=== PATIENT | male | born 1945 | race Caucasian/White ===

== ENCOUNTER 2019-03-11 09:31 | Emergency (ER) | payer MEDICARE, OTHER ==
[~2019-03-11] VITALS: Ht 193 cm; Wt 109.1 kg
[~2019-03-11 09:31] MED LIST: ASPI81TA30 PO; ATOR40TA71 PO; LOSA50TA3 PO
[2019-03-11 09:47] VITALS: BP 166/80
== END 2019-03-11 11:06 | disposition left against medical advice (07) ==
LOC: ER 09:31
DX: T81.9XXA Unspecified complication of procedure, initial encounter (principal); Z53.21 Procedure and treatment not carried out due to patient leaving prior to being seen by health care provider; Y83.8 Other surgical procedures as the cause of abnormal reaction of the patient, or of later complication, without mention of misadventure at the time of the procedure; Y92.89 Other specified places as the place of occurrence of the external cause

== ENCOUNTER 2025-07-11 11:24 | Day surgery (SDC) | payer MEDICARE, OTHER ==
[2025-07-07 14:18] LABS: MEAN PLATELET VOLUME 8.9 FL (7.4-10.4); RED CELL DISTRIBUTION WIDTH 13.6 % (11.5-14.5)
[2025-07-07 14:35] LABS: CREATININE 0.91 MG/DL (0.60-1.10); TOTAL CARBON DIOXIDE 27.3 MMOL/L (24-32); eGFR 81 ML/MIN
[2025-07-07 14:41] LABS: EOSINOPHILS % (MANUAL) 1.0 % (0-6); LYMPHOCYTES % (MANUAL) 58.0 % (21-51); MONOCYTES % (MANUAL) 5.0 % (2-12); NEUTROPHILS % (MANUAL) 28.0 % (42-75); REACTIVE LYMPHOCYTES % 8.0 % (0-0)
[2025-07-07 14:42] LABS: PLATELET ESTIMATE NORMAL
[2025-07-11] VITALS (17 sets, daily range): BP systolic 89–144; BP diastolic 33–84; PULSE 60–74; RESP 12–74; TEMP 98; O2SAT 93–98
[~2025-07-11] VITALS: Ht 193 cm; Wt 105.1 kg
[2025-07-11] MEDS: LIDOcaine 1% 30ml preserv. free vial IJ ONE (11:17)
[~2025-07-11 11:24] MED LIST changes: +LIDOcaine 1% 30ml preserv. free vial ONE; +LOSA-416 PO; -LOSA50TA3 PO
[2025-07-11] MEDS ORDERED: fentaNYL/PF 50MCG/1 ML 2ML syringe ONE ×2 (11:52→12:15)
[2025-07-11] MEDS ORDERED: MIDAZolam 1 MG/ML 5ML VIAL ONE ×2 (11:52→12:15)
[2025-07-11] MEDS: mupirocin 2% nasal ointment 1gm UD NS ONE (11:55)
[2025-07-11] MEDS: ceFAZolin 2gm/dext,iso 50mL 50 ML IV ONE (11:55)
[2025-07-11] MEDS: ringers solution, lacted 1,000 ML IV SCH (11:55)
[2025-07-11] MEDS: metoprolol tartrate 12.5mg (1/2 tablet) PO ONE (11:57)
--- NOTE | 2025-07-11 13:02 | OPERATIVE REPORT ---
Operative Report Operative Report Cardiovascular surgery operative report 11 July 2025 Preoperative diagnosis: Status post biventricular pacemaker implantation with generator HELEN Postop diagnosis: Same Procedure: Biventricular pacemaker generator replacement using Jackson pulse generator model number [id number] serial [id number] Surgeon: Dr. Uyen Bear Anesthesia: Local with 1% lidocaine with conscious sedation using Versed and fentanyl Complications: None EBL: 5 cc Procedure: The patient is taken to the operating room placed in supine position. Following the administration of intravenous sedation and the placement of appropriate lines the anterior chest was prepped and draped sterilely. The skin subcutaneous tissue as well as pectoralis major muscle underlying the scar in the left prepectoral region was infiltrated with 1% lidocaine for approximately 15 cc. The scar was excised and this incision carried down through skin and subcutaneous tissue sharply using electrocautery for hemostasis. The pectoralis major muscles were spread to expose the underlying pocket. The pocket was then opened with the electrocautery. The pulse generator was removed. The leads were then removed from the pulse generator and attached to the new pulse generator. They were tested. The right atrial lead had a P-wave of greater than 5 mV with impedance of 530 Ohms at 5 volts. Its threshold was 0.5 volts. The right ventricular lead had an impedance of 460 Ohms at 5 volts with a threshold of 0.87 volts at five milliseconds. No R-wave was obtainable due to pacer dependence. The left ventricular lead had an impedance of 510 Ohms with a threshold was 0.37 volts at a pulse width of 0.8 milliseconds. These were felt to be excellent. The generator was then replaced within the pocket coiling all excess lead between the generator and the muscle. The pocket was then copiously irrigated with antibiotic solution. The incision was closed by reapproximating the pectoralis major muscle with interrupted 2-0 Vicryl, the subcutaneous tissue with a running 2-0 Vicryl and the skin with a running 4-0 Monocryl subcuticular suture. Steri- Strips were applied to skin and a Bioclusive dressing was placed. The patient was then awakened returned to the recovery room in stable condition, having tolerated the procedure satisfactorily. There were no complications. Sponge, needle and instrument counts were correct x2 at the end of the case. UYEN BEAR III, MD Jul 11, 2025 13:02
== END 2025-07-11 14:14 | disposition home or self-care (01) ==
LOC: PAS 11:24
PROVIDERS: ATTEND Thoracic Surgery (Cardiothoracic Vascular Surgery)
DX: Z45.010 Encounter for checking and testing of cardiac pacemaker pulse generator [battery] (principal); I48.91 Unspecified atrial fibrillation; E78.5 Hyperlipidemia, unspecified; Z87.891 Personal history of nicotine dependence; Z79.82 Long term (current) use of aspirin; Z79.899 Other long term (current) drug therapy; Z90.49 Acquired absence of other specified parts of digestive tract; Z90.89 Acquired absence of other organs; Z88.0 Allergy status to penicillin; Z88.8 Allergy status to other drugs, medicaments and biological substances
CPT/HCPCS: 33229; 36415; 80053; 82948; 85025; A4215; A4615; A6258; A7000; C2621; J0690; J2003; J2250; J3010; J7030; J7120; Z7506; Z7512; Z7610; 85007